=== PATIENT | male | born 1955 | race Caucasian/White ===

== ENCOUNTER 2019-08-08 22:25 | Inpatient (IN) | payer MEDICAID ==
[~2019-08-08] VITALS: Ht 179.1 cm; Wt 70.1 kg
[2019-08-08] MEDS ORDERED: MORPHINE SULFATE 4 MG/ML CPJ (NOT FOR IM USE) IV STA (23:13)
[2019-08-08] MEDS ORDERED: ONDANSETRON HCL 4MG/2ML INJ IV STA (23:13)
[2019-08-08] MEDS ORDERED: CEFTRIAXONE 1 G PREMIX 50 ML IV ONE (23:15)
[2019-08-08] MEDS ORDERED: SODIUM CHLORIDE 0.9% 1000ML BAG (SEPSIS BOLUS) IV ONE (23:15)
[2019-08-08 23:40] LABS: BASOPHILS % 0.6 % (0.0-2.0); HEMATOCRIT. 50.7 % (42.0-52.0); HEMOGLOBIN. 16.9 g/dL (14.0-18.0); LYMPHOCYTES % 12.4 % (20.0-50.0); MEAN CORPUSCULAR HEMOGLOBIN 28.5 pg (28.0-32.0); MEAN CORPUSCULAR VOLUME 85.9 fL (80.0-94.0); MEAN PLATELET VOLUME 8.3 fl (7.4-10.4); PLATELET 318 x1000/uL (130-400); RED BLOOD CELL COUNT 5.91 mill/uL (4.7-6.1); RED CELL DISTRIBUTION WIDTH 13.5 % (11.6-14.6)
[2019-08-08 23:48] LABS: PROTHROMBIN TIME 10.3 sec (9.6-11.0)
[2019-08-09] VITALS (10 sets, daily range): BP systolic 121–152; BP diastolic 79–106
[2019-08-09 00:08] LABS: CHLORIDE 94 mEq/L (98-107)
[2019-08-09 01:26] LABS: CLARITY URINE CLEAR (CLEAR); COLOR URINE YELLOW (YELLOW); KETONES URINE 4+ (NEGATIVE); LEUKOCYTE ESTERASE URINE NEGATIVE (NEGATIVE); NITRITE URINE NEGATIVE (NEGATIVE); OCCULT BLOOD URINE NEGATIVE (NEGATIVE); PH URINE 5.5 (4.5-8.0); PROTEIN URINE 1+ (NEGATIVE); SPECIFIC GRAVITY URINE 1.033 (1.005-1.030); UROBILINOGEN URINE 0.2 E.U./dL (0.2-1.0)
[2019-08-09] MEDS ORDERED: IPRATROPIUM/ALBUTEROL 0.5-3(2.5)MG/3ML NEB HHN PRN (09:00)
[2019-08-09] MEDS ORDERED: ACETAMINOPHEN 325MG TABLET PO PRN (09:00)
[2019-08-09] MEDS ORDERED: LORAZEPAM 0.5MG TABLET PO PRN (09:00)
[2019-08-09] MEDS ORDERED: DOCUSATE SODIUM 100MG CAPSULE PO PRN (09:00)
[2019-08-09] MEDS ORDERED: ONDANSETRON HCL 4MG/2ML INJ IV PRN (09:00)
[2019-08-09] MEDS ORDERED: CLONIDINE 0.1MG TABLET PO PRN (09:00)
[2019-08-09] MEDS ORDERED: DEXTROSE 50% WATER 50ML SYRINGE IV PRN (10:00)
[2019-08-09] MEDS: SODIUM CHLORIDE 0.9% 1,000 ML IV SCH (10:42)
[2019-08-09] MEDS: BLOOD SUGAR DIAGNOSTIC STRIP TEST SCH ×3 (12:35→21:00)
[2019-08-09] MEDS: INSULIN LISPRO 100 UNITS/ML SUBCUT SCH ×3 (12:44→21:00)
[2019-08-09] MEDS ORDERED: METF1000 MT (16:37)
[2019-08-09] MEDS ORDERED: DOCU-138 PO (16:37)
[2019-08-09] MEDS ORDERED: MORPHINE SULFATE 2 MG/ML CPJ (NOT FOR IM USE) IV PRN (18:45)
[2019-08-09] MEDS ORDERED: POTASSIUM CHLORIDE 20MEQ TABLET SR PO NR (18:45)
[2019-08-09] MEDS: PANTOPRAZOLE 40MG DR TABLET PO SCH (19:00)
[2019-08-09] MEDS ORDERED: PNEUMOCOCCAL 23-VAL P-SAC VAC 0.5 ML IM ONE (19:30)
[2019-08-09] MEDS: SUCRALFATE 1G TABLET PO SCH (22:20)
[2019-08-10] VITALS (11 sets, daily range): BP systolic 101–164; BP diastolic 52–122
[2019-08-10] MEDS: SODIUM CHLORIDE 0.9% 1,000 ML IV SCH ×2 (05:48→13:14)
[2019-08-10 06:09] LABS: BASOPHILS % 0.3 % (0.0-2.0); EOSINOPHILS % 0.1 % (0.0-5.0); HEMATOCRIT. 45.3 % (42.0-52.0); HEMOGLOBIN. 15.6 g/dL (14.0-18.0); LYMPHOCYTES % 25.8 % (20.0-50.0); MEAN CORPUSCULAR HEMOGLOBIN 29.1 pg (28.0-32.0); MEAN CORPUSCULAR VOLUME 84.3 fL (80.0-94.0); MEAN PLATELET VOLUME 8.1 fl (7.4-10.4); MONOCYTES % 10.1 % (2.0-8.0); NEUTROPHILS % 63.7 % (40.0-76.0); PLATELET 284 x1000/uL (130-400); RED BLOOD CELL COUNT 5.37 mill/uL (4.7-6.1); RED CELL DISTRIBUTION WIDTH 13.4 % (11.6-14.6)
[2019-08-10 06:21] LABS: CHLORIDE 102 mEq/L (98-107)
[2019-08-10 06:28] LABS: LDL CHOLESTEROL 151 mg/dL (5-100)
[2019-08-10 06:30] LABS: HDL CHOLESTEROL 32 mg/dL (40-59)
[2019-08-10] MEDS: BLOOD SUGAR DIAGNOSTIC STRIP TEST SCH ×4 (08:00→21:00)
[2019-08-10] MEDS: PANTOPRAZOLE 40MG DR TABLET PO SCH ×2 (08:51→17:00)
[2019-08-10] MEDS: SUCRALFATE 1G TABLET PO SCH ×4 (08:51→22:34)
[2019-08-10] MEDS: HYDROCODONE/ACETAMINOPHEN 5/325MG TABLET PO PRN ×2 (13:16→17:06)
[2019-08-10] MEDS: INSULIN LISPRO 100 UNITS/ML SUBCUT SCH ×3 (13:30→21:00)
[2019-08-10 13:32] LABS: *BARBITURATES SCREEN URINE NEGATIVE (NEGATIVE)
[2019-08-10 13:33] LABS: *BENZODIAZEPINES SCREEN URINE NEGATIVE (NEGATIVE); *COCAINE SCREEN URINE NEGATIVE (NEGATIVE); METHADONE URINE SCREEN NEGATIVE (NEGATIVE); OPIATES URINE SCREEN PRESUMTIVE POSITIVE (NEGATIVE)
[2019-08-10 13:39] LABS: PHENCYCLIDINE URINE SCREEN NEGATIVE (NEGATIVE)
[2019-08-10 13:43] LABS: *AMPHETAMINES SCREEN URINE NEGATIVE (NEGATIVE)
[2019-08-10 13:44] LABS: CANNABINOID URINE SCREEN PRESUMTIVE POSITIVE (NEGATIVE)
[2019-08-11] VITALS (10 sets, daily range): BP systolic 98–134; BP diastolic 57–86
[2019-08-11 06:31] LABS: BASOPHILS % 0.3 % (0.0-2.0); EOSINOPHILS % 0.5 % (0.0-5.0); HEMATOCRIT. 46.5 % (42.0-52.0); HEMOGLOBIN. 15.9 g/dL (14.0-18.0); LYMPHOCYTES % 37.3 % (20.0-50.0); MEAN CORPUSCULAR HEMOGLOBIN 28.8 pg (28.0-32.0); MEAN CORPUSCULAR VOLUME 84.1 fL (80.0-94.0); MONOCYTES % 10.7 % (2.0-8.0); NEUTROPHILS % 51.2 % (40.0-76.0); PLATELET 278 x1000/uL (130-400); RED BLOOD CELL COUNT 5.53 mill/uL (4.7-6.1); RED CELL DISTRIBUTION WIDTH 13.5 % (11.6-14.6)
[2019-08-11 06:47] LABS: CHLORIDE 102 mEq/L (98-107)
[2019-08-11] MEDS: SUCRALFATE 1G TABLET PO SCH ×3 (07:29→17:32)
[2019-08-11] MEDS: PANTOPRAZOLE 40MG DR TABLET PO SCH ×2 (07:29→17:32)
[2019-08-11] MEDS: SODIUM CHLORIDE 0.9% 1,000 ML IV SCH ×2 (07:30→09:09)
[2019-08-11] MEDS: INSULIN LISPRO 100 UNITS/ML SUBCUT SCH ×2 (07:30→13:27)
[2019-08-11] MEDS: BLOOD SUGAR DIAGNOSTIC STRIP TEST SCH ×2 (07:30→13:25)
[2019-08-11] MEDS ORDERED: ATOR10TA69 MT (13:42)
[2019-08-11] MEDS ORDERED: SUCR1TAB30 PO ×2 (13:42→13:46)
[2019-08-11] MEDS ORDERED: PANT40TA4 PO ×2 (13:42→13:46)
== END 2019-08-11 18:00 | disposition home or self-care (01) | DRG 241 ==
LOC: ER 22:25 → 5EST 08-09 03:09 → EDBEDREQTM 08-09 03:29 → EDBEDREQSVC 08-09 03:29 → EDBEDREQ 08-09 03:29 → ENRESERV 08-09 07:05
PROVIDERS: ADMIT Internal Medicine; ATTEND Internal Medicine
DX: K27.9 Peptic ulcer, site unspecified, unspecified as acute or chronic, without hemorrhage or perforation (principal); E11.51 Type 2 diabetes mellitus with diabetic peripheral angiopathy without gangrene; K52.9 Noninfective gastroenteritis and colitis, unspecified; E11.65 Type 2 diabetes mellitus with hyperglycemia; E78.5 Hyperlipidemia, unspecified; D72.829 Elevated white blood cell count, unspecified; E87.1 Hypo-osmolality and hyponatremia; I10 Essential (primary) hypertension; Z89.511 Acquired absence of right leg below knee; R10.13 Epigastric pain
CPT/HCPCS: 36415; 71045; 74176; 76700; 80048; 80061; 80305; 81003; 82962; 83036; 83605; 84145; 84484; 87804; 90732; 93005; 96361; 96365; 96375; 99291; J0696; J1815; J2270; J2405; J7030